=== PATIENT | female | born 1935 | race Caucasian/White ===

== ENCOUNTER 2016-05-26 21:05 | Emergency (ER) | payer MEDICARE, MEDICAID ==
[2016-05-26 21:29] VITALS: BP 180/82
[2016-05-26] MEDS ORDERED: HYDROmorphone 0.5 MG/0.5 ML Syringe IM ONE (21:42)
--- NOTE | 2016-05-26 23:17 | EDM.PDOC ---
ED HPI Trauma - General Chief Complaint: Upper Extremity Injury/Pain Stated Complaint: FALL Time Seen by Provider: 05/26/16 21:42 Source: Reports: Patient History Limitations: Reports: No limitations - History of Present Illness INITIAL COMMENTS - FREE TEXT/NARRATIVE: History of present illness: [80-year-old female presents after falling on an outstretched left hand. Complains of wrist pain no other injuries. ] Review of systems: As per history of present illness and below otherwise all systems reviewed and negative. Past medical history: As per history of present illness and as reviewed below otherwise noncontributory. Surgical history: As per history of present illness and as reviewed below otherwise noncontributory. Social history: No reported history of drug or alcohol abuse. Family history: As per history of present illness and as reviewed below otherwise noncontributory. Physical exam: HEENT: Atraumatic, normocephalic, Lungs: Clear to auscultation, breath sounds equal bilaterally, Heart: S1S2, regular, negative for clicks, rubs, or JVD. Abdomen: Soft, nondistended, nontender. Negative for masses or hepatosplenomegaly. Extremities: She has pain and swelling about her left wrist Neuro: Awake, alert, oriented. Exam nonfocal. Diagnostics: [X-rays demonstrate a Colles' fracture of the distal radial] Therapeutics: [] Impression: [Colles' fracture of distal left radial] Plan: [She is splinted and will followup in the orthopedic clinic tomorrow morning. I spoke with them tonight and they will give her a call tomorrow to make these arrangements. We're providing her with [place] for pain] Definitive disposition and diagnosis as appropriate pending reevaluation and review of above. Allergies/ADRs: Allergies No Known Allergies Allergy (Verified 05/26/16 21:29) Home Medications: Ambulatory Orders Citalopram Hydrobromide [Celexa] 05/26/16 Gabapentin [Neurontin] 05/26/16 Levothyroxine [Synthroid] 05/26/16 [Confirmed 05/26/16] Meloxicam [Mobic] 05/26/16 Simvastatin [Zocor] 05/26/16 Trifluoperazine 05/26/16 traMADol [Ultram] 05/26/16 Past Medical History Musculoskeletal History: Reports: Osteoarthritis, RA - Past Surgical History HEENT Surgical History: Reports: Tonsillectomy GI Surgical History: Reports: Appendectomy Female Surgical History: Reports: Hysterectomy Social & Family History - Tobacco Use Smoking Status *Q: Never Smoker Review of Systems - Review of Systems Review Of Systems: ROS reveals no pertinent complaints other than HPI. Trauma Exam - Physical Exam Exam: See Below Course - Vital Signs Last Recorded V/S: Last Vital Signs Temp 36.6 C 05/26/16 21:36 Pulse 71 05/26/16 21:36 Resp 18 05/26/16 21:36 BP 180/82 H 05/26/16 21:36 Pulse Ox 98 05/26/16 21:36 - Orders/Labs/Meds Orders: Active Orders 24 hr Category Date Time Status Wrist Comp Min 3V Lt [CR] Stat Exams 05/26/16 21:41 Taken Meds: Medications Discontinued Medications Generic Name Dose Route Start Last Admin Trade Name Freq PRN Reason Stop Dose Admin Hydromorphone HCl 0.5 mg 05/26/16 21:42 05/26/16 22:03 Dilaudid IM 05/26/16 21:43 0.5 mg ONETIME ONE Administration Departure - Departure Time of Disposition: 23:16 Disposition: Home, Self-Care 01 Condition: good Clinical Impression: Colles' fracture of left radius Qualifiers: Encounter type: initial encounter Fracture type: closed Qualified Code(s): S52.532A - Colles' fracture of left radius, initial encounter for closed fracture Forms: ED Department Discharge Additional Instructions: Someone from the orthopedic clinic she call you tomorrow morning to make arrangements for you to be seen by the orthopedist - My Orders Last 24 Hours: My Active Orders 05/26/16 21:41 Wrist Comp Min 3V Lt [CR] Stat - Assessment/Plan Last 24 Hours: My Active Orders 05/26/16 21:41 Wrist Comp Min 3V Lt [CR] Stat
--- NOTE | 2016-05-27 08:45 | CR ---
Wrist Comp Min 3V Lt HISTORY: Fall injury COMPARISON: None FINDINGS: Comminuted compacted and angulated fracture of the radial metaphysis. Old injury to the ul manav styloid. Carpal bones appear intact.
== END 2016-05-26 23:30 | disposition home or self-care (01) ==
LOC: JP.ED 21:05
DX: S52.532A Colles' fracture of left radius, initial encounter for closed fracture (principal); Z79.899 Other long term (current) drug therapy; Z90.49 Acquired absence of other specified parts of digestive tract; Z90.710 Acquired absence of both cervix and uterus; W19.XXXA Unspecified fall, initial encounter
CPT/HCPCS: 29125; 73110; 96372; 99283; 99284; J1170

== ENCOUNTER 2016-05-28 10:30 | Day surgery (SDC) | payer MEDICARE, MEDICAID ==
[~2016-05-28 10:30] MED LIST: Bupivacaine 0.5%/EPINEPHrine 1:200,000 50 ML MDV ONE; Povidone-Iodine 10% Soln 118.25 ML Bottle ONE
[2016-05-28] MEDS ORDERED: Acetaminophen/HYDROcodone 325-5 MG Tab PO ONE (11:45)
[2016-05-28] MEDS ORDERED: Lactated Ringers 1,000 ML IV SCH (12:00)
[2016-05-28] MEDS ORDERED: traMADol 50 MG Tab PO ONE (12:15)
--- NOTE | 2016-05-28 12:31 | CR ---
Chest 1V Frontal HISTORY: Hypertension. COMPARISON: None FINDINGS: Cardiac size normal. Slightly rotated film to the left. No focal infiltrates or effusions.
[2016-05-28] MEDS ORDERED: Ondansetron 4 MG Tab.DIS PO PRN (14:27)
[2016-05-28] MEDS ORDERED: ceFAZolin 2 GM in Sodium Chloride 0.9% 50 ML IV ONE (15:30)
[2016-05-28] MEDS ORDERED: POLYVINYL ALCOHOL EYEBOTH PRN (15:50)
[2016-05-28] MEDS: traMADol 50 MG Tab PO PRN ×2 (15:54→20:43)
[2016-05-28] MEDS ORDERED: cefTRIAXone 1 GM in Sodium Chloride 0.9% 50 ML IV SCH (16:00)
[2016-05-28] MEDS ORDERED: Hypromellose 0.4% Ophth Soln 15 ML Bottle EYEBOTH PRN (16:03)
--- NOTE | 2016-05-28 16:26 | PCM.CONS ---
H&P History of Present Illness - General Date of Service: 05/28/16 Admit Problem/Dx: Admission Diagnosis/Problem Admission Diagnosis/Problem Wrist joint pain Source of Information: Patient, Provider History Limitations: Reports: No limitations - History of Present Illness Initial Comments - Free Text/Narative: I was asked to see Rosie by Dr. Remy regarding urinary tract infection and medical management of a potential orthopedic surgery patient. Rosie slipped and fell while climbing stairs this weekend and fell backwards and had a resulting left wrist fracture. The plan was for operative repair today but unfortunately she was found to have a urinary tract infection. She was admitted to the hospital for further management and surgical intervention as soon as possible. She is currently reporting 6/10 left wrist pain that is achy in nature. The pain does not radiate. It is worse with movement and better with rest. This is about the average pain since the injury. She does report some dysuria but has not had increased frequency or urgency. She has not had any fevers. Appetite has been normal. Energy has been decreased slightly. No complaints of chest pain, shortness of breath or abdominal pain. She does have a history of urinary tract infections. Left Arm Pain Score (Numeric/FACES): 6 - Related Data Allergies/Adverse Reactions: Allergies Allergy/AdvReac Type Severity Reaction Status Date / Time codeine Allergy Cannot Verified 05/28/16 11:30 Remember acetaminophen [From Percocet] AdvReac Nausea Verified 05/28/16 14:43 oxycodone [From Percocet] AdvReac Nausea Verified 05/28/16 14:43 Home Medications: Home Meds Citalopram Hydrobromide [Celexa] 20 mg PO DAILY 05/26/16 [History] Gabapentin [Neurontin] 300 mg PO DAILY 05/26/16 [History] Levothyroxine [Synthroid] 50 mcg PO DAILY 05/26/16 [History] Meloxicam [Mobic] 7.5 mg PO DAILY 05/26/16 [History] Simvastatin [Zocor] 20 mg PO DAILY 05/26/16 [History] Trifluoperazine 5 mg PO BID 05/26/16 [History] traMADol [Ultram] 50 mg PO DAILY 05/26/16 [History] Bisacodyl [Dulcolax] 10 mg RECTAL ASDIRECTED PRN 05/28/16 [History] Gabapentin [Neurontin] 100 mg PO BID 05/28/16 [History] Ondansetron [Zofran] 8 mg PO ASDIRECTED PRN 05/28/16 [History] Polyvinyl Alcohol [Artificial Tears] 1 drop EYEBOTH TID PRN 05/28/16 [History] diphenhydrAMINE HCl [Benadryl] 25 mg PO .3XWEEK PRN 05/28/16 [History] Past Medical History HEENT History: Reports: Impaired vision, Other (see below) Other HEENT History: Lazy right eye, Dry eyes Cardiovascular History: Reports: Hypertension Gastrointestinal History: Reports: GERD Genitourinary History: Reports: Urinary incontinence, UTI, recurrent [employer] History: Reports: Dysfunctional uterine bleeding, , Spontaneous Musculoskeletal History: Reports: Osteoarthritis, RA Neurological History: Reports: Other (see below) Other Neuro History: Hx of Tardive Dyskinesia Psychiatric History: Reports: Addiction, Anxiety, Bipolar, Dementia, Depression , Other (see below) Other Psychiatric History: Schizotypal personality disorder, Lewey Body Dementia Endocrine/Metabolic History: Reports: Hypothyroidism, Osteoporosis Hematologic History: Reports: Anemia, Blood transfusion(s) - Infectious Disease History Infectious Disease History: Reports: Chicken pox, Measles, Mumps, Other (see below) Other Infectious Disease History: Lymes Disease - Past Surgical History HEENT Surgical History: Reports: Tonsillectomy Cardiovascular Surgical History: Reports: None GI Surgical History: Reports: Appendectomy, Colonoscopy, EGD Female Surgical History: Reports: Hysterectomy, Salpingo-oophorectomy Endocrine Surgical History: Reports: None Musculoskeletal Surgical History: Reports: None Social & Family History - Family History Cardiac: Denies: CAD - Tobacco Use Smoking Status *Q: Never Smoker Second Hand Smoke Exposure: No - Caffeine Use Caffeine Use: Reports: Soda - Alcohol Use Days Per Week of Alcohol Use: 0 - Recreational Drug Use Recreational Drug Use: No H&P Review of Systems - Review of Systems: Review Of Systems: See Below Free Text/Narrative: A complete 12 point review of systems was obtained. Pertinent positives and negatives are noted in the history of present illness. All other systems were reviewed and were negative except as noted. Exam - Exam Exam: See Below - Vital Signs Vital Signs: Last Vital Signs Temp 36.8 C 05/28/16 15:13 Pulse 60 05/28/16 15:13 Resp 18 05/28/16 15:13 BP 127/67 05/28/16 15:13 Pulse Ox 93 L 05/28/16 15:13 Weight: 87.6 kg - Exam Quality Assessment: No: supplemental oxygen, urinary catheter General: alert, oriented, cooperative. No: mild distress HEENT: Conjunctiva clear, Mucosa moist & pink. No: Scleral icterus Neck: supple, trachea midline. No: lymphadenopathy Lungs: Clear to auscultation, Normal respiratory effort Cardiovascular: regular rate, regular rhythm. No: systolic murmur Abdomen: normal bowel sounds, soft, distention, tenderness (mild mid-left abdominal pain). No: guarding Extremities: normal pulses, other (left wrist wrapped with [place] and splint. Able to wiggle fingers). No: cyanosis, edema Peripheral Pulses: 2+: dorsalis pedis (L), dorsalis pedis (R) Skin: warm, dry, intact Neuro Extensive - Mental Status: alert, oriented x3 Neuro Extensive - Motor, Sensory, Reflexes: CN II-XII intact, other (normal sensation in fingertips on left hand). No: dysarthria, abnormal motor, tremor Psychiatric: alert, normal affect - Patient Data Lab Results last 24 hrs: Laboratory Results - last 24 hr 05/28/16 05/28/16 05/28/16 Range/Units 11:38 11:38 12:11 WBC 7.7 (4.5-11.0) K/uL RBC 3.43 (3.30-5.50) M/uL Hgb 10.3 L (12.0-15.0) g/dL Hct 31.9 L (36.0-48.0) % MCV 93 (80-98) fL MCH 30 (27-31) pg MCHC 32 (32-36) % Plt Count 304 (150-400) K/uL Sodium 140 (140-148) mmol/L Potassium 4.7 (3.6-5.2) mmol/L Chloride 104 (100-108) mmol/L Carbon Dioxide 26 (21-32) mmol/L Anion Gap 10.1 (5.0-14.0) mmol/L BUN 20 H (7-18) mg/dL Creatinine 1.5 H (0.6-1.0) mg/dL Est Cr Clr Drug Dosing 27.69 mL/min Estimated GFR (MDRD) 33 L (>60) Glucose 101 (74-106) mg/dL Calcium 9.4 (8.5-10.1) mg/dL Urine Color Yellow Urine Appearance Turbid Urine pH 6.0 (4.5-8.0) Ur Specific [place] 1.015 (1.008-1.030) Urine Protein Negative (NEGATIVE) mg/dL Urine Glucose (UA) Normal (NEGATIVE) mg/dL Urine Ketones Negative (NEGATIVE) mg/dL Urine Occult Blood Moderate (NEGATIVE) Urine Nitrite Positive H (NEGATIVE) Urine Bilirubin Negative (NEGATIVE) Urine Urobilinogen Normal (NORMAL) mg/dL Ur Leukocyte Esterase Large (NEGATIVE) Urine RBC 5-10 H (0-5) Urine WBC >100 H (0-5) Ur Epithelial Cells Few Amorphous Sediment Not seen Urine Bacteria Many Urine Mucus Not seen Result Diagrams: 05/28/16 11:38 05/28/16 11:38 Consult PN Assessment/Plan (1) Colles' fracture of left radius SNOMED Code(s): 624151142 Code(s): S52.532A - COLLES' FRACTURE OF LEFT RADIUS, INIT FOR CLOS FX Current Visit: No Qualifiers: Encounter type: subsequent encounter Fracture type: closed Fracture healing: with routine healing Qualified Code(s): S52.532D - Colles' fracture of left radius, subsequent encounter for closed fracture with routine healing (2) Acute cystitis without hematuria SNOMED Code(s): 49133546 Code(s): N30.00 - ACUTE CYSTITIS WITHOUT HEMATURIA Current Visit: Yes Problem List Initiated/Reviewed/Updated: Yes My Orders last 24 hours: My Active Orders 05/28/16 16:00 cefTRIAXone [Rocephin] 1 gm Sodium Chloride 0.9% [Normal Saline] 50 ml IV Q24H 05/28/16 16:03 Hypromellose [Natural Balance Tears] 0 ml EYEBOTH TID PRN 05/28/16 16:17 CULTURE URINE [RM] Routine 05/28/16 21:00 Gabapentin [Neurontin] 100 mg PO BID Simvastatin [Zocor] 20 mg PO BEDTIME Trifluoperazine 5 mg PO BID 05/29/16 07:30 Levothyroxine [Synthroid] 50 mcg PO ACBREAKFAST 05/29/16 09:00 Citalopram [Celexa] 20 mg PO DAILY Gabapentin [Neurontin] 300 mg PO DAILY Plan: assessment and plan - Left wrist fracture - operative intervention planned with ORIF. unfortunately she has an active infection and surgery will be delayed slightly. Pain is fairly well-controlled. She is in a splint. -Pain control -Operative intervention as soon as infection has been treated Acute cystitis - history of urinary tract infections. Strong evidence for infection based on symptoms and urinalysis. -Ceftriaxone -Followup urine culture -If patient is to be discharged tomorrow outpatient management with cephalexin 500 mg twice daily could be considered Thank you for the interesting consultation and allowing me to be involved in Rosie's care. I will continue to follow along while she is hospitalized. John Herrera M.D. Requesting Provider: Dr. Remy Date Consult Requested: 05/28/16 Reason for Consult: acute cystitis Patient History Reviewed: Yes Admission H&P Reviewed: No (not available) Notified Requestor: Yes (Elen Paul) Time Spent (in minutes): 40
[2016-05-28] MEDS: Gabapentin 100 MG Cap PO SCH (20:42)
[2016-05-28] MEDS ORDERED: Simvastatin 20 MG Tab PO SCH (21:00)
[2016-05-29] MEDS: traMADol 50 MG Tab PO PRN ×2 (05:19→09:49)
[2016-05-29 07:11] VITALS: BP 128/65
[2016-05-29] MEDS ORDERED: Levothyroxine 50 MCG Tab PO SCH (07:30)
[2016-05-29] MEDS ORDERED: Citalopram 20 MG Tab PO SCH (09:00)
[2016-05-29] MEDS ORDERED: Gabapentin 300 MG Cap PO SCH (09:00)
[2016-05-29] MEDS ORDERED: Non-Formulary Medication 1 Each (Citalopram Hydrobromide [Celexa] 20 MG) PO SCH (09:00)
[2016-05-29] MEDS: Gabapentin 100 MG Cap PO SCH (09:15)
--- NOTE | 2016-05-29 09:28 | PCM.DCSUM1 ---
Discharge Summary - Hospital Course Free Text/Narrative:: Rosie is a 80 year old female who we admitted yesterday for issues with pain control. She was suppose to have a radius repair but ended up having a UTI. She states her pain is under control at this time. - Discharge Data Discharge Date: 05/29/16 Discharge Disposition: DC/Tfer to Other 70 Condition: Good - Patient Summary/Data Consults: Consultations 05/28/16 14:27 Consult to Physician [CONS] Routine Consulting Provider: John Herrera Call Completed to Consulting Physician: No Planned Operative Procedure(s) after DC: Patient is to have a radius repair on Friday. - Patient Instructions Diet: Heart Healthy Diet Activity: Apply Ice, As Tolerated, Elevate Extremity Wound/Incision Care: Keep Operative Site/Wound Site Clean and Dry Notify Provider of: Fever, Increased Pain, Swelling and Redness, Drainage - Discharge Plan Home Medications: Home Meds Citalopram Hydrobromide [Celexa] 20 mg PO DAILY 05/26/16 [History] Gabapentin [Neurontin] 300 mg PO DAILY 05/26/16 [History] Levothyroxine [Synthroid] 50 mcg PO DAILY 05/26/16 [History] Meloxicam [Mobic] 7.5 mg PO DAILY 05/26/16 [History] Simvastatin [Zocor] 20 mg PO DAILY 05/26/16 [History] Trifluoperazine 5 mg PO BID 05/26/16 [History] traMADol [Ultram] 50 mg PO DAILY 05/26/16 [History] Bisacodyl [Dulcolax] 10 mg RECTAL ASDIRECTED PRN 05/28/16 [History] Gabapentin [Neurontin] 100 mg PO BID 05/28/16 [History] Ondansetron [Zofran] 8 mg PO ASDIRECTED PRN 05/28/16 [History] Polyvinyl Alcohol [Artificial Tears] 1 drop EYEBOTH TID PRN 05/28/16 [History] diphenhydrAMINE HCl [Benadryl] 25 mg PO .3XWEEK PRN 05/28/16 [History] Referrals: Mani Remy DO [Physician] - (She is to have surgery on Friday to repair her radius fracture. ) - Discharge Summary/Plan Comment Discharge Summary/Plan Comment: Patient is to be discharged today. She is to have surgery on Friday with Dr. Mani Remy. She will return to her living center today. I prescribed her keflex 500 po BID until Friday. She will continue on her Ultram on her scheduled basis. - General Info Date of Service: 05/29/16 Functional Status: Reports: pain controlled, tolerating diet, urinating - Review of Systems General: Reports: no symptoms Musculoskeletal: Reports: arm pain, joint pain Skin: Reports: no symptoms Neurological: Reports: no symptoms - Patient Data Vitals - Most Recent: Last Vital Signs Temp 36.1 C 05/29/16 07:09 Pulse 57 L 05/29/16 07:09 Resp 16 05/29/16 07:09 BP 128/65 05/29/16 07:09 Pulse Ox 95 05/29/16 07:09 Weight - Most Recent: 193 lb 2 oz I&O - Last 24 hours: Intake & Output 05/28/16 05/29/16 05/29/16 22:59 06:59 14:59 Intake Total 464 502 150 Balance 464 502 150 Lab Results - Last 24 hrs: Laboratory Results - last 24 hr 05/28/16 05/28/16 05/28/16 Range/Units 11:38 11:38 12:11 WBC 7.7 (4.5-11.0) K/uL RBC 3.43 (3.30-5.50) M/uL Hgb 10.3 L (12.0-15.0) g/dL Hct 31.9 L (36.0-48.0) % MCV 93 (80-98) fL MCH 30 (27-31) pg MCHC 32 (32-36) % Plt Count 304 (150-400) K/uL Neut % (Auto) (36-66) % Lymph % (Auto) (24-44) % [place] % (Auto) (2-6) % Eos % (Auto) (2-4) % Baso % (Auto) (0-1) % Sodium 140 (140-148) mmol/L Potassium 4.7 (3.6-5.2) mmol/L Chloride 104 (100-108) mmol/L Carbon Dioxide 26 (21-32) mmol/L Anion Gap 10.1 (5.0-14.0) mmol/L BUN 20 H (7-18) mg/dL Creatinine 1.5 H (0.6-1.0) mg/dL Est Cr Clr Drug Dosing 27.69 mL/min Estimated GFR (MDRD) 33 L (>60) Glucose 101 (74-106) mg/dL Calcium 9.4 (8.5-10.1) mg/dL Urine Color Yellow Urine Appearance Turbid Urine pH 6.0 (4.5-8.0) Ur Specific [place] 1.015 (1.008-1.030) Urine Protein Negative (NEGATIVE) mg/dL Urine Glucose (UA) Normal (NEGATIVE) mg/dL Urine Ketones Negative (NEGATIVE) mg/dL Urine Occult Blood Moderate (NEGATIVE) Urine Nitrite Positive H (NEGATIVE) Urine Bilirubin Negative (NEGATIVE) Urine Urobilinogen Normal (NORMAL) mg/dL Ur Leukocyte Esterase Large (NEGATIVE) Urine RBC 5-10 H (0-5) Urine WBC >100 H (0-5) Ur Epithelial Cells Few Amorphous Sediment Not seen Urine Bacteria Many Urine Mucus Not seen 05/29/16 05/29/16 Range/Units 05:50 05:50 WBC 6.0 (4.5-11.0) K/uL RBC 3.39 (3.30-5.50) M/uL Hgb 10.3 L (12.0-15.0) g/dL Hct 31.5 L (36.0-48.0) % MCV 93 (80-98) fL MCH 30 (27-31) pg MCHC 33 (32-36) % Plt Count 295 (150-400) K/uL Neut % (Auto) 61 (36-66) % Lymph % (Auto) 29 (24-44) % [place] % (Auto) 6 (2-6) % Eos % (Auto) 4 (2-4) % Baso % (Auto) 1 (0-1) % Sodium 139 L (140-148) mmol/L Potassium 4.4 (3.6-5.2) mmol/L Chloride 104 (100-108) mmol/L Carbon Dioxide 25 (21-32) mmol/L Anion Gap 14.4 H (5.0-14.0) mmol/L BUN 20 H (7-18) mg/dL Creatinine 1.5 H (0.6-1.0) mg/dL Est Cr Clr Drug Dosing 27.69 mL/min Estimated GFR (MDRD) 33 L (>60) Glucose 122 H (74-106) mg/dL Calcium 9.2 (8.5-10.1) mg/dL Urine Color Urine Appearance Urine pH (4.5-8.0) Ur Specific [place] (1.008-1.030) Urine Protein (NEGATIVE) mg/dL Urine Glucose (UA) (NEGATIVE) mg/dL Urine Ketones (NEGATIVE) mg/dL Urine Occult Blood (NEGATIVE) Urine Nitrite (NEGATIVE) Urine Bilirubin (NEGATIVE) Urine Urobilinogen (NORMAL) mg/dL Ur Leukocyte Esterase (NEGATIVE) Urine RBC (0-5) Urine WBC (0-5) Ur Epithelial Cells Amorphous Sediment Urine Bacteria Urine Mucus GEOFFREY Results - Last 24 hrs: Microbiology 05/28/16 16:17 Urine Culture - Preliminary Urine, Clean Catch Med Orders - Current: Current Medications Artificial Tears (Natural Balance Tears) 0 ml EYEBOTH TID PRN PRN Reason: DRY EYES Citalopram Hydrobromide (Celexa) 20 mg PO DAILY [facility] Last Admin: 05/29/16 09:14 Dose: 20 mg Gabapentin (Neurontin) 100 mg PO BID [facility] Last Admin: 05/29/16 09:15 Dose: 100 mg Gabapentin (Neurontin) 300 mg PO DAILY [facility] Last Admin: 05/29/16 09:14 Dose: 300 mg Lactated Ringer's (Ringers, Lactated) 1,000 mls @ 0 mls/hr IV ASDIRECTED [facility] PRN Reason: KVO Ceftriaxone Sodium 1 gm/ (Sodium Chloride) 50 mls @ 100 mls/hr IV Q24H [facility] Last Admin: 05/28/16 17:20 Dose: 100 mls/hr Levothyroxine Sodium (Synthroid) 50 mcg PO ACBREAKFAST [facility] Last Admin: 05/29/16 09:14 Dose: 50 mcg Ondansetron HCl (Zofran Odt) 4 mg PO Q6H PRN PRN Reason: Nausea able to take PO Simvastatin (Zocor) 20 mg PO BEDTIME [facility] Last Admin: 05/28/16 20:42 Dose: 20 mg Tramadol HCl (Ultram) 50 mg PO Q4H PRN PRN Reason: Pain Last Admin: 05/29/16 05:19 Dose: 50 mg Trifluoperazine HCl (Trifluoperazine) 5 mg PO BID [facility] Last Admin: 05/29/16 09:15 Dose: Not Given Discontinued Medications Acetaminophen/Hydrocodone Bitart (Lydia 325-5 Mg) 1 tab PO ONETIME ONE Stop: 05/28/16 11:46 Last Admin: 05/28/16 18:54 Dose: Not Given Bupivacaine HCl/Epinephrine Bitart (Marcaine 0.5%/Epinephrine 1:200,000) Confirm Administered Dose 50 ml .ROUTE .STK-MED ONE Stop: 05/28/16 07:07 Cefazolin Sodium 2 gm/ Sodium (Chloride) 50 mls @ 100 mls/hr IV ONETIME ONE Stop: 05/28/16 15:59 Povidone Iodine (Betadine 10% Soln) Confirm Administered Dose 1 ml .ROUTE .STK- MED ONE Stop: 05/28/16 07:07 Tramadol HCl (Ultram) 50 mg PO ONETIME ONE Stop: 05/28/16 12:16 Last Admin: 05/28/16 12:08 Dose: 50 mg - Exam General: Reports: alert, oriented Extremities: Reports: no edema Skin: Reports: warm, dry, intact Wound/Incisions: Reports: healing well *Q Meaningful Use (DIS) - VTE *Q VTE Criteria *Q: - Stroke *Q Stroke Criteria *Q: - AMI *Q AMI Criteria *Q:
== END 2016-05-29 10:45 | disposition home or self-care (01) ==
LOC: JP.SDS 10:30 → JP.MS 14:32 → UNDOADMOB 14:32 → UNDODISOB 05-29 10:45 → JP.SDS 05-29 10:45
PROVIDERS: ATTEND Orthopaedic Surgery
DX: S52.532D Colles' fracture of left radius, subsequent encounter for closed fracture with routine healing (principal); N30.00 Acute cystitis without hematuria; Z53.8 Procedure and treatment not carried out for other reasons; I10 Essential (primary) hypertension; K21.9 Gastro-esophageal reflux disease without esophagitis; F41.8 Other specified anxiety disorders; E03.9 Hypothyroidism, unspecified; D64.9 Anemia, unspecified; Z88.6 Allergy status to analgesic agent; Z79.899 Other long term (current) drug therapy; W10.9XXA Fall (on) (from) unspecified stairs and steps, initial encounter; Z90.49 Acquired absence of other specified parts of digestive tract; Z90.710 Acquired absence of both cervix and uterus; Z98.890 Other specified postprocedural states
CPT/HCPCS: 36415; 71010; 80048; 81001; 85025; 85027; 87086; 87088; 87186; 93005; 93010; 99219; A9270; J0696; J7050

== ENCOUNTER 2016-05-31 07:15 | Day surgery (SDC) | payer MEDICARE, MEDICAID ==
[~2016-05-31 07:15] MED LIST changes: +Lactated Ringers 1,000 ML IV SCH
[2016-05-31] MEDS ORDERED: ceFAZolin 1 GM in Premix Bag 1 BAG IV ONE (07:30)
[2016-05-31] MEDS ORDERED: Lidocaine 1% 2 ML ONE (08:32)
[2016-05-31] MEDS ORDERED: fentaNYL 250 MCG/5 ML SDV ONE ×2 (10:03→10:50)
[2016-05-31] MEDS ORDERED: Dexamethasone 4 MG/ML SDV ONE (10:04)
[2016-05-31] MEDS ORDERED: Rocuronium 50 MG/5 ML Vial ONE (10:04)
[2016-05-31] MEDS ORDERED: Ondansetron 4 MG/2 ML SDV ONE (10:04)
[2016-05-31] MEDS ORDERED: Propofol 200 MG/20 ML SDV ONE (10:04)
[2016-05-31] MEDS ORDERED: Neostigmine Methylsulfate 1 MG/ML 5 ML Syringe ONE (10:04)
--- NOTE | 2016-05-31 12:31 | OR ---
DATE OF PROCEDURE: 05/31/2016 PREOPERATIVE DIAGNOSIS: Left distal radius fracture, closed. POSTOPERATIVE DIAGNOSIS: Left distal radius fracture, closed. PROCEDURE: Open reduction and internal fixation, left distal radius. ANESTHESIA: Laryngeal mask airway, general anesthesia. FLUID: Lactated Ringer solution. ESTIMATED BLOOD LOSS: 25 mL. COMPLICATIONS: None. SPECIMEN: None. DISPOSITION: Stable to PACU. INSTRUMENTATION: [employer] Hand innovation set. INDICATIONS FOR THE PROCEDURE: The patient was seen preoperatively in the ER. She had come in with a left distal radius fracture. She was staying at an assisted living complex. We were planning on performing the procedure on Friday; however, it was found that she had a severe urinary tract infection. She was admitted overnight and given IV antibiotics. She subsequently was brought back this morning. Risks and benefits of the procedure were explained to the patient. Informed consent was obtained. DETAILS OF PROCEDURE: The patient was seen preoperatively by myself and the Anesthesia staff in the preop holding area where the operative site was marked. She was brought to the operative suite by the Anesthesia staff where general anesthesia was administered. All extremities were found to be well padded. A well-padded tourniquet was placed on the left arm. The splint that was on was removed. The patient's left upper extremity is then prepped and draped in a sterile manner. Time-out was called identifying the correct patient, the correct procedure, the correct site, and antibiotics were begun with appropriate period of time. The left upper extremity was then exsanguinated. Tourniquet was raised to 250 mmHg for 41 minute and taken down prior to closure. The incision was made over the flexor carpi radialis from the mid carpus, approximately around 12 cm. Bleeding was controlled with Bovie electrocautery. Dissection was performed with Metzenbaum scissors and Adson forceps down the level of the flexor carpi radialis tendon. I then used a Weitlaner retractor to mobilize the tendon laterally and then went through the dorsal portion of the muscle belly. I then retracted again and then used a sharp blade to go through the radial aspect of the pronator quadratus and then used an elevator to remove any remaining soft tissue from the bone. The fracture site was visualized. I used a [place] for reduction and then irrigated with saline to remove any extra blood clot. This was confirmed on fluoroscopy unit. The fluoroscopy unit was sterilely draped. A small plate was then placed and put into position. Using fluoroscopy, I then drilled the oblong hole and placed a screw once I found that this was in good position. I then drilled all, but the ulnar prox ulnar distal locking screw. I placed partially-threaded screws in all the remaining holes except for the styloid hole, which had a smooth PEG inserted. I then drilled my other two cortical holes to the plate and then placed those screws. I confirmed good reduction and screw placement on AP and lateral fluoroscopy views, which were saved. We then copiously irrigated with saline and let down the tourniquet. There was very minimal bleeding at that point and then closed subcutaneously with 3-0 and 2-0 Vicryl interrupted sutures as well as skin closure with 3-0 nylon in horizontal mattress fashion. I then placed an iodine-soaked Adaptic sponges and then placed a volar splint. The patient was then allowed to awaken from general anesthesia and taken to the PACU in stable condition. Mani Remy DO /[id number]
[2016-05-31] MEDS ORDERED: Acetaminophen/HYDROcodone 325-5 MG Tab PO ONE (12:40)
[2016-05-31 13:54] VITALS: BP 160/63
== END 2016-05-31 14:33 | disposition home or self-care (01) ==
LOC: JP.SDS 07:15
PROVIDERS: ATTEND Orthopaedic Surgery
DX: S52.502A Unspecified fracture of the lower end of left radius, initial encounter for closed fracture (principal); I10 Essential (primary) hypertension; K21.9 Gastro-esophageal reflux disease without esophagitis; E03.9 Hypothyroidism, unspecified; D64.9 Anemia, unspecified; F31.9 Bipolar disorder, unspecified; M35.3 Polymyalgia rheumatica; F20.9 Schizophrenia, unspecified; M81.0 Age-related osteoporosis without current pathological fracture; Z88.8 Allergy status to other drugs, medicaments and biological substances; Z88.5 Allergy status to narcotic agent
CPT/HCPCS: 25607; A9270; C1713; C1776; J0690; J1100; J2405; J2704; J3010; J7120; 29126